=== PATIENT | female | born 1965 | race Caucasian/White ===

== ENCOUNTER 2021-02-22 14:38 | Inpatient (IN) | payer MEDICARE, OTHER ==
[~2021-02-22] VITALS: Ht 167.6 cm; Wt 108.0 kg
[~2021-02-22 14:38] MED LIST: BASAGLAR K100 UNIT/1 SQ; DOXYCYCLINE HY100 M2 PO; IMITREX50 MG PO; IRON325 M1 PO; METFORMIN HCL1000 MG PO; NEURONTIN 100100 MG PO; NEURONTIN600 MG PO; NOVOLOG100 UNIT/1 SQ
[2021-02-23 11:52] LABS: HEMOGLOBIN 8.8 gm/dl (12.3-15.3); RED BLOOD COUNT 2.99 M/UL (4.00-5.10); WHITE BLOOD COUNT 13.5 K/UL (4.5-11.0)
[2021-02-23] MEDS ORDERED: NEURONTIN800 MG PO (12:23)
[2021-02-23] MEDS ORDERED: ZANAFLEX4 MG PO (12:28)
[2021-02-23] MEDS ORDERED: MOBIC15 MG PO (12:28)
[2021-02-23] MEDS ORDERED: AMMONIUM LACTA140 GM TOP (12:29)
[2021-02-23] MEDS ORDERED: CENTRUM SILVER1 EAC4 PO (12:36)
[2021-02-23] MEDS ORDERED: LIPITOR40 MG PO (20:15)
[2021-02-23] MEDS ORDERED: ZESTRIL10 MG PO (20:17)
[2021-02-23] MEDS ORDERED: PROAIR HFA8.5 GM INH (20:19)
[2021-02-24 03:34] LABS: HEMOGLOBIN 8.5 gm/dl (12.3-15.3); RED BLOOD COUNT 2.87 M/UL (4.00-5.10); WHITE BLOOD COUNT 12.8 K/UL (4.5-11.0)
[2021-02-24 10:14] LABS: CREATININE, URINE 32.2 mg/dL (Not Estab.)
[2021-02-26] MEDS ORDERED: SODIUM BICARBO650 M1 PO (13:00)
[2021-02-26] MEDS ORDERED: LANTUS INS100 UTS/M1 SC (13:00)
[2021-02-26] MEDS ORDERED: ELIQUIS5 MG PO (13:50)
== END 2021-02-26 17:10 | disposition home or self-care (01) | DRG 682 ==
LOC: PROG CARE 02-23 09:25
PROVIDERS: Internal Medicine Nephrology; ADMIT Internal Medicine Infectious Disease
DX: N17.0 Acute kidney failure with tubular necrosis (principal); J15.9 Unspecified bacterial pneumonia; J96.92 Respiratory failure, unspecified with hypercapnia; J96.91 Respiratory failure, unspecified with hypoxia; E87.2 Acidosis; N14.1 Nephropathy induced by other drugs, medicaments and biological substances; T50.8X5A Adverse effect of diagnostic agents, initial encounter; E78.5 Hyperlipidemia, unspecified; E11.622 Type 2 diabetes mellitus with other skin ulcer; D64.9 Anemia, unspecified; Z86.711 Personal history of pulmonary embolism; Z79.01 Long term (current) use of anticoagulants; Z87.01 Personal history of pneumonia (recurrent); Z98.51 Tubal ligation status; Z90.49 Acquired absence of other specified parts of digestive tract; Z89.422 Acquired absence of other left toe(s); Z83.3 Family history of diabetes mellitus; Z80.1 Family history of malignant neoplasm of trachea, bronchus and lung; Z88.1 Allergy status to other antibiotic agents; Z79.4 Long term (current) use of insulin; Z86.16 Personal history of COVID-19; Z79.82 Long term (current) use of aspirin; Z79.02 Long term (current) use of antithrombotics/antiplatelets
CPT/HCPCS: 36415; 71045; 80048; 80053; 80069; 81001; 82043; 82570; 82803; 82962; 83036; 83735; 84156; 84443; 85025; 85610; 85730; 89050; 94640; 94664; 94760; 97161; J0360; J1642; J1940